=== PATIENT | female | born 1925 | race Caucasian/White ===

== ENCOUNTER 2016-04-20 06:12 | Inpatient (IN) | payer OTHER ==
[2016-04-20] MEDS ORDERED: ALBUTEROL 3 ML DEYVIAL ONE (06:16)
[2016-04-20] MEDS ORDERED: IPRATROPIUM/ALBUTEROL 3 ML DEYVIAL IH ONE (06:17)
[2016-04-20] MEDS ORDERED: NS 500 ML IV ONE (06:17)
--- NOTE | 2016-04-20 06:19 | EDPHY ---
H & P HPI/ROS: HPI CHIEF COMPLAINT: Respiratory distress by EMS on CPAP HISTORY OF PRESENT ILLNESS: This patient very pleasant 89-year-old female significant past medical history for CHF, dyspnea, hypertension, ?interstitial lung disease, coronary artery disease with stents, pulmonary edema, AFib who presents emergency room by EMS after 911 was called for worsening shortness of breath. They found this patient to have a room air saturation of 86%. She was tachypneic in the 40s and audible wheezing and wheezing on exam. They placed her on CPAP and brought her emergently to the ER. Upon arrival here to the emergency room she is tachypneic, she has audible wheezing at bedside, wheezing throughout all lung rouse with diminished breath sounds bilaterally, she appears to be in respiratory distress she has 1 word dyspnea, and she has been placed on BiPAP she did have a room air saturation of 84% here. Daughter at bedside reports that over the last 3 days she has had her increasing progressively worsening cough nonproductive and some wheezing. She also complained of some epigastric burning pain. Her daughter gave her Maalox last night to see if this improved her epigastric discomfort and around 3:00 a.m. she got up to go the bathroom and noticed that she was more short of breath. Of note this patient was admitted back in November 16 and discharged on November 22. This noted on her last H&P she had EF of 25%. Of note this patient is a DNR. Past Medical History: Hypertension, CHF, dyspnea, coronary artery disease, AFib , questionable interstitial lung disease, pulmonary edema Past Surgical History: Left chest pacemaker coronary artery disease with stents Social History: Lives locally, daughter at bedside, denies use of drugs alcohol tobacco products Family History: Noncontributory ROS REVIEW OF SYSTEMS: A comprehensive 10 point review of systems is otherwise negative aside from elements mentioned in the history of present illness. Exam Constitutional severe amount of respiratory distress, one word dyspnea, triage nursing summary reviewed, vital signs reviewed, awake/alert. Eyes normal conjunctivae and sclera, EOMI, PERRLA. HENT normal inspection, atraumatic, moist mucus membranes, no epistaxis, neck supple/ no meningismus, no raccoon eyes. Respiratory decreased breath sounds bilaterally, audible wheezing at bedside , wheezing throughout all lung rouse, respiratory distress, 1 more dyspnea Cardiovascular rate normal, regular rhythm, no murmur, no edema, distal pulses normal. Gastrointestinal soft, non-tender, no rebound, no guarding, normal bowel sounds, no distension, no pulsatile mass. Genitourinary no CVA tenderness. Musculoskeletal no midline vertebral tenderness, full range of motion, no calf swelling, no tenderness of extremities, no meningismus, good pulses, neurovascularly intact. Skin pink, warm, & dry, no rash, skin atraumatic. Neurologic awake, alert and oriented x 3, AAOx3, moves all 4 extremities equally, motor intact, sensory intact, CN II-XII intact, normal cerebellar, normal vision, normal speech. Psychiatric normal mood/affect. Heme/Lymph/Immune no lymphadenopathy. Differential Diagnosis: Includes but is not limited to in a particular order, respiratory distress, COPD exacerbation, pulmonary edema, interstitial lung disease, pneumonia, influenza, heart failure, pulmonary embolism, pneumothorax Medical Decision Making: this patient has been placed on full face BiPAP for respiratory support, we will obtain an ABG in 30 minutes after on BiPAP, patient did receive Solu-Medrol 125 mg by EMS as well as a DuoNeb breathing treatment will place her on a continuous neb treatment at this time. She will have a chest x-ray, EKG, blood work, cardiac marker. I have also ordered an echocardiogram. Patient need to be admitted on full face BiPAP most likely to the ICU. Re-evaluation: EKG interpretation by me on record in [employer] system. Impression time of EKG 6:25 a.m., this is sinus rhythm with a left bundle branch block present. This is similar to her previous EKGs. ED x-ray chest one view: Cardiomegaly present, pulmonary edema present throughout lung rouse mild pleural effusions bilaterally. Critical Care: Total Critical Care Time Spent Managing this Patient: 60 Minutes. This time was spent Exclusively with this patient. This Care was exclusive of procedures. The Organ System/life at risk was respiratory This Patient was in Critical Condition because respiratory distress, due to decompensated heart failure 0659; spoke with Dr. Mendosa with cardiology understands this patient be admitted to the hospitalist service. Will consult inpatient. Source: Patient, EMS - Personal History Tetanus Vaccine Date: < 10 years - Medical/Surgical History Hx Asthma: No Hx Chronic Respiratory Disease: Yes Hx Diabetes: No Hx Cardiac Disease: Yes Hx Renal Disease: No Hx Cirrhosis: No Hx Alcoholism: No Hx HIV/AIDS: No Hx Splenectomy or Spleen Trauma: No Other PMH: Pacemaker, Congestive heart failure, HTN (labile per daughter), CAD, 2 stents: 1 in 2001 and 1 in 2013, [place] (1990), Interstitial lung disease Aphasic episode (2012), Afib, cholycystecotmy, GERD - Social History Smoking Status: Former smoker Constitutional: Initial Vital Signs O2 Sat (%) 99 04/20/16 06:17 O2 Delivery Mode Bi-Pap Allergies/Adverse Reactions: atenolol Allergy (Verified 04/20/16 06:30) ceftriaxone Allergy (Verified 04/20/16 06:30) celecoxib [From Celebrex] Allergy (Verified 04/20/16 06:30) Penicillins Allergy (Verified 04/20/16 06:30) Rash Home Medications: Medication Instructions Recorded Multivitamins [Multivitamin (*)] 1 tab PO Q2D 10/23/14 Amiodarone HCl [Pacerone (*)] 200 mg PO DAILY@18 12/24/14 Magnesium Hydroxide/Al Hydrox 10 ml PO DAILY 12/24/14 [Mag-Al Liquid] Sennosides/Docusate Sodium 1 - 2 tab PO HS PRN 12/24/14 [Senokot-S] Aspirin [Aspirin 81mg (*)] 81 mg PO DAILY #0 tab 12/26/14 Isosorbide Dinitrate [Isosorbide 20 mg PO TIDNITRATE #90 tab 12/26/14 Dinitrate 20 mg (*)] hydrALAZINE [Apresoline 10 mg (*)] 10 mg PO TID #90 tab 12/26/14 ALPRAZolam [Xanax 0.25 MG (*)] 0.375 mg PO HS 07/31/15 Levothyroxine [Synthroid 75 mcg 75 mcg PO DAILY06 07/31/15 (*)] Ascorbic Acid [Vitamin C 500 mg 500 mg PO Q2D 04/20/16 (*)] Calcium Carbonate [Tums 500MG (*)] 1,000 mg PO HS 04/20/16 Cholecalciferol Vit D3 [Vitamin D3 2,000 units PO DAILY 04/20/16 (*)] Clopidogrel Bisulfate [Plavix (*)] 75 mg PO DAILY@08 04/20/16 Furosemide [Lasix 20 MG (*)] 20 mg PO DAILY 04/20/16 Furosemide [Lasix 20 MG (*)] 20 mg PO DAILY PRN 04/20/16 Herbals/Supplements -Info Only 1 ea PO DAILY 04/20/16 Levalbuterol Inhaler [Xopenex Hfa 2 puffs IH DAILY PRN 04/20/16 Inhaler (*)] Loratadine [Claritin 10 mg] 10 mg PO DAILY 04/20/16 Pantoprazole Sodium [Protonix 40mg 40 mg PO DAILY 04/20/16 (*)] Medical Decision Making - Data Points Laboratory Results: Laboratory Results 04/20/16 06:20 04/20/16 06:20 Microbiology Results: MICROBIOLOGY 04/20/16 06:20 Blood Blood Culture - Preliminary 04/20/16 06:20 Blood Blood Culture - Preliminary Medications Given: Discontinued Medications Al Hydroxide/Mg Hydroxide (Maalox Susp) 10 ml PO DAILY [facility] Stop: 10/18/16 08:59 Last Admin: 04/21/16 10:23 Dose: Not Given Albuterol/Ipratropium (Duoneb) 3 ml IH EDNOW ONE Stop: 04/20/16 06:18 Last Admin: 04/20/16 06:49 Dose: 3 ml Furosemide (Lasix Injection) 40 mg IVP EDNOW ONE Stop: 04/20/16 06:44 Last Admin: 04/20/16 07:00 Dose: 40 mg Sodium Chloride (Ns) 500 mls @ 0 mls/hr IV ONCE ONE PRN Reason: As Directed Stop: 04/20/16 06:18 Last Admin: 04/20/16 07:02 Dose: Not Given Isosorbide Dinitrate (Isosorbide Dinitrate) 20 mg PO TIDNITRATE [facility] Stop: 10/17/16 11:59 Last Admin: 04/20/16 11:58 Dose: 20 mg Morphine Sulfate (Morphine) 4 mg IVP EDNOW ONE Stop: 04/20/16 06:30 Last Admin: 04/20/16 06:35 Dose: 4 mg Ondansetron HCl (Zofran) 4 mg IVP EDNOW ONE Stop: 04/20/16 06:30 Last Admin: 04/20/16 06:33 Dose: 4 mg Pantoprazole Sodium (Protonix) 40 mg PO DAILY [facility] Stop: 10/17/16 11:59 Last Admin: 04/20/16 12:30 Dose: Not Given Departure - Departure Disposition: [facility] Inpatient Acute Clinical Impression: Acute decompensated heart failure Condition: Critical
--- NOTE | 2016-04-20 06:27 | CPEKG ---
Heart Rate: 77 RR Interval: 779 P-R Interval: 180 QRSD Interval: 204 QT Interval: 480 QTC Interval: 544 P Ellington: 73 QRS Ellington: -20 T Wave Ellington: 105 EKG Severity - ABNORMAL ECG - EKG Impression: SINUS RHYTHM EKG Impression: LEFT BUNDLE BRANCH BLOCK Electronically Signed By: Kiran Vidal 22-Apr-2016 05:16:56
[2016-04-20] MEDS ORDERED: ONDANSETRON 4 MG/2 ML VIAL IVP ONE (06:29)
[2016-04-20 06:37] LABS: % IMMATURE GRANULYOCYTES 0.4 % (0.0-1.1); ABSOLUTE IMMATURE GRANULOCYTES 0.03 10^3/uL (0.00-0.10); ADD DIFF? NO; ADD MORPH? NO; ADD SCAN? NO; ATYPICAL LYMPHOCYTE FLAG 10 (0-99); FRAGMENT RBC FLAG 0 (0-99); HEMOGLOBIN 12.4 g/dL (12.6-16.3); LEFT SHIFT FLG 0 (0-99); LIPEMIA HEMOLYSIS FLAG 80 (0-99); MEAN CELL HEMOGLOBIN 30.6 pg (27.9-34.1); MEAN CELL HEMOGLOBIN CONCENTR. 32.6 g/dL (32.4-36.7); MEAN CELL VOLUME 93.8 fL (81.5-99.8); MEAN PLATELET VOLUME 10.3 fL (8.7-11.7); PLATELET CLUMPS FLAG 10 (0-99); PLATELET COUNT 234 10^3/uL (150-400); RED BLOOD CELL COUNT 4.05 10^6/uL (4.18-5.33); RED CELL DISTRIBUTION WIDTH 14.6 % (11.5-15.2)
[2016-04-20 06:42] LABS: INR 1.07 (0.83-1.16); PROTIME(PATIENT) 13.8 SEC (12.0-15.0)
[2016-04-20 06:43] LABS: APTT 23.1 SEC (23.0-38.0)
[2016-04-20] MEDS ORDERED: FUROSEMIDE 40 MG/4 ML VIAL IVP ONE (06:43)
[2016-04-20 06:45] LABS: ALANINE AMINOTRANSFERASE 69 IU/L (9-52); ALBUMIN 3.8 g/dL (3.5-5.0); ALKALINE PHOSPHATASE 116 IU/L (38-126); ANION GAP 11 mEq/L (8-16); ASPARTATE AMINOTRANSFERASE 74 IU/L (14-46); BILIRUBIN,TOTAL 0.8 mg/dL (0.1-1.4); BILIRUBIN-CONJUGATED 0.2 mg/dL (0.0-0.5); BILIRUBIN-UNCONJUGATED 0.6 mg/dL (0.0-1.1); CALCIUM 9.5 mg/dL (8.5-10.4); CARBON DIOXIDE 29 mEq/l (22-31); CHLORIDE 99 mEq/L (97-110); CREATININE 0.9 mg/dL (0.6-1.0); GLOMERULAR FILTRATION RATE 59; GLUCOSE 136 mg/dL (70-100); POTASSIUM 4.5 mEq/L (3.5-5.2); SODIUM 139 mEq/L (134-144); TOTAL PROTEIN 6.9 g/dL (6.3-8.2)
[2016-04-20 06:57] LABS: TROPONIN I 0.016 ng/mL (0-0.034)
[2016-04-20] MEDS ORDERED: ONDANSETRON DISINTEGRATING 4 MG TAB PO PRN (06:58)
[2016-04-20] MEDS ORDERED: ACETAMINOPHEN 325 MG TAB PO PRN (06:58)
[2016-04-20] MEDS ORDERED: ONDANSETRON 4 MG/2 ML VIAL IVP PRN (06:58)
--- NOTE | 2016-04-20 08:31 | GHP ---
[f rep st] HISTORY AND PHYSICAL DATE OF ADMISSION: 04/20/2016 CHIEF COMPLAINT: Epigastric pain and chest tightness. HISTORY OF PRESENT ILLNESS: This is an 89-year-old female with a known history of ischemic heart dys function and systolic heart failure who presents with complaints of early onset this morning of epiga stric tightness and what she describes as congestion. The patient is managed very carefully at home by her daughter on medications for her heart disease and gastroesophageal reflux disease. Per the duane carpenter's report, the patient was in her normal state of health, but had been describing a sense of co ngestion over the course of the preceding 72 hours, a sensation of needing to cough or clear secretio ns which she has been unable to do so. This led to increased shortness of breath and some fatigue. The patient additionally has recurrent nearly daily symptoms of reflux for which she takes medication s. When she went to bed the night prior to presentation, she had been complaining of worsening reflu x symptoms and was treated with her typical medications, had relief and went to bed. The patient sle pt from her normal bedtime until about 3 in the morning when she woke up to urinate and described int ensification of both her reflux symptoms and a congested sensation in her chest; therefore, presente d to the emergency department. In the ED, the patient is denying any chest pain. Denies palpitation s. She is currently on BiPAP and is having symptomatic relief of both her reflux symptoms and her co ngestion. Denies any abdominal discomfort beyond the epigastric area. Denies any changes in her bow el habits. Denies dysuria or hematuria. The patient, however, has lower extremity edema or notable edema in her abdomen even when having an exacerbation of her heart failure. Denies any subjective fe vers or chills. Daughter denies any recent cough or productive sputum. PAST MEDICAL HISTORY: 1. Chronic systolic heart failure. 2. Hypertension. 3. Coronary artery disease, status post stenting. 4. Gastroesophageal reflux disease with chronic epigastric pain. 5. History of interstitial lung disease. This diagnosis is questioned by Pulmonary. 6. Paroxysmal atrial fibrillation, status post pacemaker. 7. Hypothyroidism. 8. History of a hip fracture in November of 2014. 9. Polymyalgia rheumatica, not on steroids. 10. Anxiety, on chronic benzodiazepines. SOCIAL HISTORY: Patient lives with her daughter. Nonsmoker and nondrinker. No illicit drugs. ADVANCED DIRECTIVES: The patient is do not resuscitate. FAMILY HISTORY: Both her parents are . REVIEW OF SYSTEMS: A 10-point review of systems is negative with the exception of that reported in nica deluca HPI. PHYSICAL EXAMINATION: VITAL SIGNS: Blood pressure is 157/94, heart rate 83, respiratory rate 22, sa turating 98% on 100% BiPAP, receiving continuous nebulizer treatment. Afebrile at 36.4. GENERAL: Nica de la rosa is an elderly-appearing female sitting up with a BiPAP mask on. HEENT: Notable for dry mucous m embranes. Eye exam is negative for any icterus. CARDIAC: Patient sounds regular. Has a systolic m urmur. PULMONARY: Diminished breath sounds at bilateral bases. Rales are appreciated posteriorly. GASTROINTESTINAL: Positive bowel sounds. ABDOMEN: Soft. Tender to palpation in the epigastrium. No rebound or guarding. MUSCULOSKELETAL: Negative for any lower extremity edema. SKIN: Negative f or any rashes. NEUROLOGIC: She appears alert and oriented x3 with simple questioning through the Bi PAP mask. PSYCHIATRIC: She is cooperative on interview and examination. IMAGING: EKG, which I personally reviewed and interpreted, shows sinus rhythm with a left bundle bra nch block. Chest x-ray, which I personally reviewed and interpreted, shows bilateral increased interstitial jarrod ings. Pacemaker is visualized. Suspect a small effusion on the left. LABORATORY DATA: White count 8.4, hematocrit 38.0 which is baseline, platelets 234, INR 1.07, creati nine 0.9, sodium 139. BNP is 6530 up from 4180 last checked. Troponin 0.016. ASSESSMENT/PLAN: 1. Acute systolic heart failure. Bedside echocardiography is being performed. As I examined the katiana garcia, estimated ejection fraction is lower than 35 last visualized on transthoracic echo. Based on chest imaging and increased oxygen needs, suspect the patient is experiencing acute systolic heart fa ilure. Agree with IV Lasix at this time. Will continue her cardiac medications once reconciled. Izzy chapman is comfortable on BiPAP and I suspect after diuresis we will be able to transition her back to nasa l cannula. Cardiology has been consulted from the emergency department. The patient is do not resus citate so we will focus our treatment on medical management. 2. Acute hypoxic respiratory failure secondary to acute systolic heart failure. Again, we will matthew t with IV Lasix. Continue the patient's cardiac regimen otherwise. 3. Atrial fibrillation, status post pacemaker placement. The patient's rates are currently controll ed. She is sinus on EKG at presentation. Will continue her amiodarone, aspirin and Plavix. 4. Gastroesophageal reflux disease. Patient uses multiple medications. Will continue her PPI and H 2 marialuisa she takes at home. Symptoms certainly compounds her presentation for heart failure intermi ttently if the symptoms are confused. 5. Hypertension. Continue her multi-drug regimen. Blood pressures are appropriately controlled at presentation. Prophylaxis with Lovenox. 6. Anxiety. Will continue the patient's three times daily p.r.n. Xanax. DIET: Cardiac when she is transitioned off the BiPAP. DISPOSITION: I expect greater than 2 midnights as the patient is nearly 89 and presenting with acute hypoxic respiratory failure and acute systolic heart failure. I have discussed the case with the ergency room physician. Patient is responding well to BiPAP. She is stable for transition to the [facility]. /[id number]/MODL
--- NOTE | 2016-04-20 08:44 | DX ---
Portable AP chest. April 20, 2016At 6:33 AM History: Prior history of CHF. Dyspnea. COMPARISON STUDY: November 18, 2015. Findings: Diffuse interstitial thickening is new from prior study compatible with acute interstitial edema and acute congestive heart failure. Cardiac silhouette remains markedly enlarged. Left subclavian transvenous pacemaker is unchanged. Advanced degenerative arthropathy identified in both shoulders. Impression: Acute congestive heart failure.
[2016-04-20] MEDS: ASPIRIN 81 MG CHEWABLE TAB PO SCH (11:31)
[2016-04-20] MEDS: ENOXAPARIN 40 MG/0.4 ML SYR SC SCH (11:32)
[2016-04-20] MEDS: hydrALAZINE 10 MG TAB PO SCH ×3 (11:32→23:02)
[2016-04-20] MEDS: CHOLECALCIFEROL VIT D3 1,000 UNITS TAB PO SCH (11:32)
[2016-04-20] MEDS: CLOPIDOGREL BISULFATE 75 MG TAB PO SCH (11:32)
[2016-04-20] MEDS ORDERED: LEVALBUTEROL INHALER 200 PUFFS/15 GM MDI IH PRN (11:45)
[2016-04-20] MEDS ORDERED: NON-FORMULARY NEW DRUG (Loratadine [Claritin 10 Mg] 10 MG) PO SCH (11:45)
[2016-04-20] MEDS: MULTIVITAMINS 1 EACH TAB PO SCH (11:58)
[2016-04-20] MEDS: LEVOTHYROXINE 75 MCG TAB PO SCH (11:58)
[2016-04-20] MEDS ORDERED: ISOSORBIDE DINITRATE 20 MG TAB PO SCH (12:00)
[2016-04-20] MEDS ORDERED: PANTOPRAZOLE SODIUM 40 MG TAB PO SCH (12:00)
[2016-04-20] MEDS: CETIRIZINE 10 MG TAB PO SCH (12:00)
[2016-04-20] MEDS: FUROSEMIDE 40 MG/4 ML VIAL IVP SCH (14:39)
[2016-04-20] MEDS: PANTOPRAZOLE SODIUM 40 MG TAB PO SCH (16:18)
[2016-04-20] MEDS: AMIODARONE HCL 200 MG TAB PO SCH (17:25)
[2016-04-20] MEDS: ISOSORBIDE DINITRATE 20 MG TAB PO SCH ×2 (17:25→23:03)
[2016-04-20] MEDS ORDERED: CALCIUM CARBONATE 500 MG CHEWABLE TAB PO PRN (18:04)
[2016-04-20] MEDS: CALCIUM CARBONATE 500 MG CHEWABLE TAB PO PRN (18:07)
--- NOTE | 2016-04-20 19:22 | GCON ---
[f rep st] CONSULTATION CARDIOLOGY CONSULTATION DATE OF CONSULTATION: 04/20/2016 CHIEF COMPLAINT: Epigastric tightness and pressure and shortness of breath. HISTORY OF PRESENT ILLNESS: The patient is an 89-year-old female patient of Dr. Wilfredo Montemayor and Dr. Lopez with a known history of ischemic cardiomyopathy, ejection fraction last in October y ear of 35%, who presents in the healthcare advisory services manager hours with complaint of shortness of breath. It began, as it usually does, with epigastric fullness and tightness. This did not respond to the usual thera pies which include treatment for reflux with Maalox and Mylanta. The pressure and epigastric discomf ort continued to worsen. The patient was unable to get a deep breath and finally this morning an amb ulance was called, BiPAP was placed to help the patient with respiration, and the patient was admitte d to the hospital. At the time of my evaluation, the patient has been diuresed successfully and is n o longer on BiPAP. She seems to be comfortable sitting upright in the chair. I was asked to see the patient in consultation because of her admission and known history of ischemic cardiomyopathy. PAST MEDICAL HISTORY: 1. Yqshe-ow-jkjeapu systolic heart failure. 2. Hypertension. 3. Coronary disease status post stenting. 4. GE reflux with epigastric pain. 5. History of interstitial lung disease. 6. History of paroxysmal atrial fibrillation status post pacer. 7. History of hip fracture. PHYSICAL EXAMINATION: VITAL SIGNS: At the time of my evaluation, the patient's vital signs reveal b lood pressure 133/57, mean arterial pressure 82, heart rate 60 and regular, respirations are 16 and n on-labored, oxygen saturation 94% on nasal cannula. NECK: Reveals JVD. HEART: Reveals a normal S1 and S2 with a loud 3/6 to 4/6 systolic murmur consistent with mitral regurgitation with a diffuse an d laterally displaced PMI and a palpable thrill consistent with severe mitral regurgitation. LUNGS: Reveal bibasilar crackles. ABDOMEN: Benign. EXTREMITIES: Warm, dry, perfuse without significant peripheral edema. LABORATORY: Her laboratory studies reveal: 1. A white count of 8.43, an H and H of 12.4 and 38.0, a platelet count of 234. 2. BUN and creatinine are 13 and 0.9, glucose 136. AST and ALT 74 and 69, with an N-terminal proBNP of 6530. 3. The serology is negative for influenza type A and B, and is negative for flu. 4. The patient's EKG reveals sinus rhythm with left bundle branch block which is known to be chronic and diffuse ST-T abnormalities that are most likely secondary to left bundle branch block. IMPRESSION AND PLAN: Iaspi-kz-jtxxdgm systolic heart failure in a patient without recent history of dietary indiscretion. I am not sure what was the precipitating factor, but certainly the patient has had epigastric chest pressure which predates her systolic dysfunction. It may be reasonable to chec k the patient's device to see if the patient had a bout of atrial fibrillation that was causative in this issue. Given the fact that she has left bundle branch block, if atrial fibrillation with rapid ventricular response was causal in this sudden bout of congestive heart failure, it may be reasonable to consider an A-V brittany ablation to reduce the risk of a tachycardic induced superimposed myopathy in her particular case. This patient has been seen in the past by Dr. Montemayor and John and it may be prudent to get them involved in her care tomorrow. Thank you for the consultation. Will follow with you during her hospitalization. /[id number]/MODL
[2016-04-20] MEDS: ALPRAZolam 0.25 MG TAB PO SCH (20:59)
[2016-04-21] MEDS: LEVOTHYROXINE 75 MCG TAB PO SCH (05:32)
[2016-04-21 07:03] LABS: % IMMATURE GRANULYOCYTES 0.6 % (0.0-1.1); ABSOLUTE IMMATURE GRANULOCYTES 0.08 10^3/uL (0.00-0.10); ADD DIFF? NO; ADD MORPH? NO; ADD SCAN? NO; ATYPICAL LYMPHOCYTE FLAG 0 (0-99); FRAGMENT RBC FLAG 0 (0-99); HEMATOCRIT 31.2 % (38.0-47.0); HEMOGLOBIN 10.4 g/dL (12.6-16.3); LEFT SHIFT FLG 0 (0-99); LIPEMIA HEMOLYSIS FLAG 80 (0-99); MEAN CELL HEMOGLOBIN CONCENTR. 33.3 g/dL (32.4-36.7); MEAN CELL VOLUME 92.9 fL (81.5-99.8); MEAN PLATELET VOLUME 10.3 fL (8.7-11.7); PLATELET CLUMPS FLAG 10 (0-99); PLATELET COUNT 202 10^3/uL (150-400); RED BLOOD CELL COUNT 3.36 10^6/uL (4.18-5.33); RED CELL DISTRIBUTION WIDTH 14.5 % (11.5-15.2)
[2016-04-21 07:27] LABS: ANION GAP 9 mEq/L (8-16); CARBON DIOXIDE 30 mEq/l (22-31); CHLORIDE 98 mEq/L (97-110); CREATININE 0.8 mg/dL (0.6-1.0); GLOMERULAR FILTRATION RATE > 60; GLUCOSE 101 mg/dL (70-100); POTASSIUM 4.5 mEq/L (3.5-5.2); SODIUM 137 mEq/L (134-144)
[2016-04-21] MEDS ORDERED: CLOPIDOGREL BISULFATE 75 MG TAB PO SCH (08:00)
--- NOTE | 2016-04-21 08:13 | HOSPPROG ---
Hospitalist Progress Note Assessment/Plan: #Acutely decompensated systolic HF -unclear etiology as compliant with meds/diet -pacer to be interrogated today and no tachyarrhythmia contributing -cont IV Lasix #CAD: Plavix, ASA, statin #Paroxsymal atrial fibrillation -no arrhythmia on interrogation -cont amiodarone, not anticoagulation candidate #Leukocytosis -unclear cause. Afebrile. Influenza negative. -negative UA #Acute hypoxemic resp failure -due to CHF. Initially required BiPap; now on 3L #MR -stable #Benign HTN -cont home meds #Hypothyroidism -LT4 #Diet: cardiac #DVT ppx: Lovenox Subjective: feeling less SOB, worked with PT Objective: Vital Signs Temp Pulse Resp BP Pulse Ox 36.6 C 66 17 114/61 94 04/21/16 05:56 04/21/16 05:56 04/21/16 05:56 04/21/16 05:56 04/21/16 05:56 Laboratory Results 04/21/16 06:43 04/21/16 06:43 04/20/16 04/21/16 04/22/16 05:59 05:59 05:59 Intake Total 100 Output Total 1100 Balance -1000 PT 13.8 SEC (12.0-15.0) 04/20/16 06:20 INR 1.07 (0.83-1.16) 04/20/16 06:20 - Physical Exam Constitutional: no apparent distress Eyes: PERRL Ears, Nose, Mouth, Throat: moist mucous membranes Cardiovascular: regular rate and rhythym, systolic murmur, edema (LE edema +!) Respiratory: inspiratory crackles Gastrointestinal: normoactive bowel sounds, soft, non-tender abdomen Genitourinary: no bladder fullness Skin: warm Musculoskeletal: full muscle strength Neurologic: AAOx3 Psychiatric: interacting appropriately ICD10 Worksheet Patient Problems: Problems Problem Status Diagnosed Acute decompensated heart failure Acute Acute delirium Acute Atrial fibrillation Acute Chronic Disease Mgmt/Transitional Care Acute Coronary artery disease Acute S/P coronary artery stent placement Acute Acute exacerbation of CHF (congestive heart failure) Acute Acute exacerbation of congestive heart failure Acute
[2016-04-21] MEDS ORDERED: MAGNESIUM HYDROXIDE PO SCH (09:00)
[2016-04-21] MEDS ORDERED: MAG HYDROX/AL HYDROX/SIMETH 30 ML UDCUP PO SCH (09:00)
[2016-04-21] MEDS ORDERED: ALUMINUM HYDROXIDE PO SCH (09:00)
[2016-04-21] MEDS ORDERED: CHOLECALCIFEROL VIT D3 1,000 UNITS TAB PO SCH (09:00)
[2016-04-21] MEDS: CLOPIDOGREL BISULFATE 75 MG TAB PO SCH (09:15)
[2016-04-21] MEDS: hydrALAZINE 10 MG TAB PO SCH ×3 (09:15→21:53)
[2016-04-21] MEDS: ISOSORBIDE DINITRATE 20 MG TAB PO SCH ×3 (09:15→21:47)
[2016-04-21] MEDS: ASPIRIN 81 MG CHEWABLE TAB PO SCH (09:16)
[2016-04-21] MEDS: CHOLECALCIFEROL VIT D3 1,000 UNITS TAB PO SCH (09:17)
[2016-04-21] MEDS: CETIRIZINE 10 MG TAB PO SCH (09:17)
[2016-04-21] MEDS: ENOXAPARIN 40 MG/0.4 ML SYR SC SCH (09:19)
[2016-04-21] MEDS: FUROSEMIDE 40 MG/4 ML VIAL IVP SCH ×2 (09:21→15:34)
[2016-04-21 12:34] LABS: COLOR YELLOW; LEUKOCYTE ESTERASE,URINE NEGATIVE (NEGATIVE); NITRITE,URINE NEGATIVE (NEGATIVE)
--- NOTE | 2016-04-21 17:23 | SOAPPROG ---
[facility] Progress Note Assessment/Plan: Assessment: 1. Acute systolic CHF - Pt was admitted on 04/20/16 with an acute systolic CHF exacerbation. The precipitating factor is not entirely clear at this time. LVEF = 20 to 25%. Symptoms improved with diuresis. O > I by 1000ml. --> No significant arrhythmias on pacemaker check. --> Consider stress test to exclude ischemia --> Continue isosorbide and hydralazine --> Continue gentle diuresis with lasix 40 mg bid --> No BB secondary to previous ADR 2. CAD - Pt has known CAD and is s/p PCI of her LAD and RCA. She denies symptoms of angina. Troponin wnl. EKG non-diagnostic given known LBBB. --> Continue asa and plavix --> No BB secondary to ADR --> Consider stress test as noted above 3. PAF - Pt has a history of PAF. She is managed with a rhythm control strategy. She is not felt to be an anticoagulation candidate. --> Continue amiodarone for rhythm control 4. HTN - Pt elevated no arrival. BP wnl on home meds. Will not advance therapy. 5. 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 Echocardigram demonstrates stable moderate to severe MR. Pt is not a good candidate for surgery. Subjective: Dyspnea improved No PND No angina No syncope or pre-syncope. Objective: Vital Signs Temp Pulse Resp BP Pulse Ox 36.6 C 85 18 112/52 L 98 04/21/16 12:33 04/21/16 15:40 04/21/16 15:40 04/21/16 15:40 04/21/16 15:40 Laboratory Results 04/21/16 06:43 04/21/16 06:43 04/20/16 04/21/16 04/22/16 05:59 05:59 05:59 Intake Total 100 Output Total 1100 Balance -1000 PT 13.8 SEC (12.0-15.0) 04/20/16 06:20 INR 1.07 (0.83-1.16) 04/20/16 06:20 Physical Exam - Physical Exam General Appearance: alert, no apparent distress Respiratory: crackles Cardiac/Chest: regular rate, rhythm, systolic murmur Extremities: pedal edema Neuro/Psych: alert ICD10 Worksheet Patient Problems: Problems Problem Status Diagnosed Acute decompensated heart failure Acute Acute delirium Acute Atrial fibrillation Acute Chronic Disease Mgmt/Transitional Care Acute Coronary artery disease Acute S/P coronary artery stent placement Acute Acute exacerbation of CHF (congestive heart failure) Acute Acute exacerbation of congestive heart failure Acute
[2016-04-21] MEDS: PANTOPRAZOLE SODIUM 40 MG TAB PO SCH (17:54)
[2016-04-21] MEDS: AMIODARONE HCL 200 MG TAB PO SCH (17:54)
[2016-04-21] MEDS: ALPRAZolam 0.25 MG TAB PO SCH (21:46)
[2016-04-21] MEDS: MAG HYDROX/AL HYDROX/SIMETH 30 ML UDCUP PO SCH (21:54)
[2016-04-22 06:16] LABS: HEMATOCRIT 31.6 % (38.0-47.0); HEMOGLOBIN 10.3 g/dL (12.6-16.3); MEAN CELL HEMOGLOBIN 30.2 pg (27.9-34.1); MEAN CELL HEMOGLOBIN CONCENTR. 32.6 g/dL (32.4-36.7); MEAN CELL VOLUME 92.7 fL (81.5-99.8); RED BLOOD CELL COUNT 3.41 10^6/uL (4.18-5.33); RED CELL DISTRIBUTION WIDTH 14.6 % (11.5-15.2)
[2016-04-22 07:30] LABS: ANION GAP 4 mEq/L (8-16); CALCIUM 8.8 mg/dL (8.5-10.4); CARBON DIOXIDE 36 mEq/l (22-31); CHLORIDE 97 mEq/L (97-110); CREATININE 0.9 mg/dL (0.6-1.0); GLOMERULAR FILTRATION RATE 59; GLUCOSE 78 mg/dL (70-100); POTASSIUM 4.3 mEq/L (3.5-5.2); SODIUM 137 mEq/L (134-144)
[2016-04-22] MEDS: LEVOTHYROXINE 75 MCG TAB PO SCH (07:30)
[2016-04-22] MEDS: ASPIRIN 81 MG CHEWABLE TAB PO SCH (08:59)
[2016-04-22] MEDS: ENOXAPARIN 40 MG/0.4 ML SYR SC SCH (09:00)
[2016-04-22] MEDS: CLOPIDOGREL BISULFATE 75 MG TAB PO SCH (09:00)
[2016-04-22] MEDS ORDERED: ASCORBIC ACID 500 MG TAB PO SCH (09:00)
[2016-04-22] MEDS: ISOSORBIDE DINITRATE 20 MG TAB PO SCH ×3 (09:00→21:32)
[2016-04-22] MEDS: FUROSEMIDE 40 MG/4 ML VIAL IVP SCH (09:00)
[2016-04-22] MEDS: hydrALAZINE 10 MG TAB PO SCH ×3 (09:00→21:31)
[2016-04-22] MEDS: CHOLECALCIFEROL VIT D3 1,000 UNITS TAB PO SCH (09:00)
[2016-04-22] MEDS: CETIRIZINE 10 MG TAB PO SCH (10:02)
[2016-04-22] MEDS: guaiFENesin 200 MG TAB PO PRN ×2 (12:06→15:20)
[2016-04-22] MEDS: MULTIVITAMINS 1 EACH TAB PO SCH (12:09)
[2016-04-22] MEDS: FUROSEMIDE 40 MG TAB PO SCH (15:19)
--- NOTE | 2016-04-22 16:11 | PDPCPN ---
Palliative Care Progress Note Assessment/Plan: Referring provider: Dr Hurst Reason for consult: Complex medical decision making Symptom control HPI: Deyanira Ortiz is a 89 yo female with PMH ISLD, HTN, CAD, and CHF admitted to the hospital with SOB and chest pressure. This is her 7th admission for CHF related issues in the past 3 years. Previous EF in october 35% now at 25%. Given lasix and required bipap on admission now transitioned to nasal cannula at 4 L. Palliative care consulted for complex medical decision making. Met with daughter Kathi, her , and Deyanira at the bedside today. Daughter reviewed that this episode seems to be the most severe as Deyanira did not respond as quickly as she has in the past to bipap and lasix. They have also seen a slow decline over the past few months and Deyanira has been living with them. While Deyanira prefers to be at home her goals are still for rehospitalization if medically needed. The family is considering all options including hospice care in the future if Deyanira continues to decline and her goals change to comfort care only. They have experience with hospice care and are familiar with the services. Discussed difference between hospice and palliative care. They would like to start with palliative care to continue goals of care conversations. Discussed using roxanol to help with her episodes of dyspnea at home. She currently uses xanax which helps some per daughter. Assessment: Physical: - Pain: occasional "chest pressure" - tylenol PRN - continue GERD medications - consider roxanol 2.5mg PO Q2hr PRN - Dyspnea: - opiates as above can be helpful for subjective dyspnea. - would use PRN for now as episodes of dyspnea are limited Emotional/psychological: Anxiety: uses xanax at home about 0.36mg PO per day Advanced Care Planning: Is patient decisional?: Yes Code Status: DNR/DNI POA: Kathi is MDPOA. Plan: Home with home health care and formerly [facility]. As of now Deyanira' s wishes are for re hospitalization if needed for CHF. 04/22/16 16:13 Subjective: I'm ok Objective: Social History: Lives with daughter here in [place]. Medication list reviewed ROS: General: fatigue, weakness ENT: negative Resp: dyspnea GI: negative : negative MS: chest pressure on occasion Skin: negative Neuro: negative Psych: anxiety Functional assessment: PPS: 50% Functional status: needs some assistance with ambulation Vital Signs Temp Pulse Resp BP Pulse Ox 36.8 C 66 20 132/77 H 88 L 04/22/16 11:47 04/22/16 11:47 04/22/16 11:47 04/22/16 11:47 04/22/16 11:47 Laboratory Results 04/22/16 05:48 04/22/16 05:48 04/21/16 04/22/16 04/23/16 05:59 05:59 05:59 Intake Total 100 1740 120 Output Total 1100 1000 Balance -1000 740 120 PT 13.8 SEC (12.0-15.0) 04/20/16 06:20 INR 1.07 (0.83-1.16) 04/20/16 06:20 Physical Exam - Physical Exam General Appearance: alert, no apparent distress Respiratory: decreased breath sounds, No respiratory distress, No accessory muscle use Skin: normal color, warm/dry Extremities: pedal edema (mild) Neuro/Psych: alert, oriented x 3 ICD10 Worksheet Patient Problems: Problems Problem Status Diagnosed Acute decompensated heart failure Acute Acute delirium Acute Atrial fibrillation Acute Chronic Disease Mgmt/Transitional Care Acute Coronary artery disease Acute Palliative care encounter Acute S/P coronary artery stent placement Acute Acute exacerbation of CHF (congestive heart failure) Acute Acute exacerbation of congestive heart failure Acute - ICD10 Problem Qualifiers (1) Palliative care encounter
--- NOTE | 2016-04-22 16:24 | SOAPPROG ---
[facility] Progress Note Assessment/Plan: Assessment: 1. Acute systolic CHF - Pt was admitted on 04/20/16 with an acute systolic CHF exacerbation. The precipitating factor is not entirely clear at this time. LVEF = 20 to 25%. Symptoms improved with diuresis. --> No significant arrhythmias on pacemaker check. --> Continue isosorbide and hydralazine --> Continue gentle diuresis with lasix 40 mg bid --> Will start low dose coreg. 2. CAD - Pt has known CAD and is s/p PCI of her LAD and RCA. She denies symptoms of angina. Troponin wnl. EKG non-diagnostic given known LBBB. --> Continue asa and plavix --> Will start low dose coreg as previous ADR was hypotension with atenolol. 3. PAF - Pt has a history of PAF. She is managed with a rhythm control strategy. She is not felt to be an anticoagulation candidate. --> Continue amiodarone for rhythm control 4. HTN - Pt elevated no arrival. BP wnl on home meds. Will not advance therapy. 5. 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 Echocardigram demonstrates stable moderate to severe MR. Pt is not a good candidate for surgery. Subjective: No anginal symptoms dyspnea improved + cough No orthopnea or PND. ambulating down [place]. Objective: Vital Signs Temp Pulse Resp BP Pulse Ox 36.8 C 66 20 132/77 H 88 L 04/22/16 11:47 04/22/16 11:47 04/22/16 11:47 04/22/16 11:47 04/22/16 11:47 Laboratory Results 04/22/16 05:48 04/22/16 05:48 04/21/16 04/22/16 04/23/16 05:59 05:59 05:59 Intake Total 100 1740 120 Output Total 1100 1000 Balance -1000 740 120 PT 13.8 SEC (12.0-15.0) 04/20/16 06:20 INR 1.07 (0.83-1.16) 04/20/16 06:20 Physical Exam - Physical Exam General Appearance: alert, no apparent distress Respiratory: other (corse bronchial breath sounds) Cardiac/Chest: regular rate, rhythm, systolic murmur Abdomen: normal bowel sounds, non-tender, soft Skin: normal color Extremities: No pedal edema ICD10 Worksheet Patient Problems: Problems Problem Status Diagnosed Acute decompensated heart failure Acute Acute delirium Acute Atrial fibrillation Acute Chronic Disease Mgmt/Transitional Care Acute Coronary artery disease Acute Palliative care encounter Acute S/P coronary artery stent placement Acute Acute exacerbation of CHF (congestive heart failure) Acute Acute exacerbation of congestive heart failure Acute
[2016-04-22] MEDS ORDERED: guaiFENesin 600 MG TAB.ER PO ONE (17:56)
[2016-04-22] MEDS: PANTOPRAZOLE SODIUM 40 MG TAB PO SCH (17:57)
[2016-04-22] MEDS: CARVEDILOL 3.125 MG TAB PO SCH (17:58)
[2016-04-22] MEDS: AMIODARONE HCL 200 MG TAB PO SCH (17:58)
[2016-04-22] MEDS: CALCIUM CARBONATE 500 MG CHEWABLE TAB PO PRN (18:00)
--- NOTE | 2016-04-22 18:08 | HOSPPROG ---
Hospitalist Progress Note Assessment/Plan: #Acutely decompensated systolic HF -unclear etiology as compliant with meds/diet -pacer interrogated and no tachyarrhythmia contributing -trial PO Lasix 40mg BID to find good home dose -Appreciate Cardiology consultation: added low-dose Coreg #CAD: Plavix, ASA, statin #Paroxsymal atrial fibrillation -no arrhythmia on interrogation -cont amiodarone, not anticoagulation candidate #Leukocytosis -resolved -unclear cause. Afebrile. Influenza negative. -negative UA #Acute hypoxemic resp failure -due to CHF. Initially required BiPap; now on 2-3L #MR -stable #Benign HTN -cont home meds #Hypothyroidism -LT4 #Diet: cardiac #DVT ppx: Lovenox Subjective: cough with some sputum production today Objective: Vital Signs Temp Pulse Resp BP Pulse Ox 36.8 C 66 20 122/62 H 88 L 04/22/16 11:47 04/22/16 11:47 04/22/16 15:40 04/22/16 15:40 04/22/16 11:47 Laboratory Results 04/22/16 05:48 04/22/16 05:48 04/21/16 04/22/16 04/23/16 05:59 05:59 05:59 Intake Total 100 1740 120 Output Total 1100 1000 450 Balance -1000 740 -330 PT 13.8 SEC (12.0-15.0) 04/20/16 06:20 INR 1.07 (0.83-1.16) 04/20/16 06:20 - Physical Exam Constitutional: no apparent distress Eyes: PERRL Ears, Nose, Mouth, Throat: moist mucous membranes Cardiovascular: regular rate and rhythym, edema (trace LE edema) Respiratory: no respiratory distress, other (few expiratory wheezes) Gastrointestinal: normoactive bowel sounds Genitourinary: no bladder fullness Skin: warm Musculoskeletal: full muscle strength Neurologic: AAOx3 Psychiatric: interacting appropriately ICD10 Worksheet Patient Problems: Problems Problem Status Diagnosed Acute decompensated heart failure Acute Acute delirium Acute Atrial fibrillation Acute Chronic Disease Mgmt/Transitional Care Acute Coronary artery disease Acute Palliative care encounter Acute S/P coronary artery stent placement Acute Acute exacerbation of CHF (congestive heart failure) Acute Acute exacerbation of congestive heart failure Acute
[2016-04-22] MEDS: guaiFENesin 600 MG TAB.ER PO SCH (18:30)
[2016-04-22 20:44] VITALS: PULSE 60
[2016-04-22] MEDS: MAG HYDROX/AL HYDROX/SIMETH 30 ML UDCUP PO SCH (21:31)
[2016-04-22] MEDS: ALPRAZolam 0.25 MG TAB PO SCH (21:32)
[2016-04-23] MEDS: LEVOTHYROXINE 75 MCG TAB PO SCH (05:56)
[2016-04-23 07:07] VITALS: RESP 18; TEMP 97.9
[2016-04-23 09:26] LABS: ANION GAP 5 mEq/L (8-16); CALCIUM 8.9 mg/dL (8.5-10.4); CARBON DIOXIDE 35 mEq/l (22-31); CHLORIDE 96 mEq/L (97-110); CREATININE 0.9 mg/dL (0.6-1.0); GLOMERULAR FILTRATION RATE 59; GLUCOSE 82 mg/dL (70-100); POTASSIUM 4.1 mEq/L (3.5-5.2); SODIUM 136 mEq/L (134-144)
[2016-04-23] MEDS: ISOSORBIDE DINITRATE 20 MG TAB PO SCH (09:50)
[2016-04-23] MEDS: ENOXAPARIN 40 MG/0.4 ML SYR SC SCH (09:50)
[2016-04-23] MEDS: CLOPIDOGREL BISULFATE 75 MG TAB PO SCH (09:50)
[2016-04-23] MEDS: MULTIVITAMINS 1 EACH TAB PO SCH (09:51)
[2016-04-23] MEDS: ASPIRIN 81 MG CHEWABLE TAB PO SCH (09:51)
[2016-04-23] MEDS: CARVEDILOL 3.125 MG TAB PO SCH (09:51)
[2016-04-23] MEDS: guaiFENesin 600 MG TAB.ER PO SCH (09:51)
[2016-04-23] MEDS: CHOLECALCIFEROL VIT D3 1,000 UNITS TAB PO SCH ×2 (09:51→09:58)
[2016-04-23] MEDS: FUROSEMIDE 40 MG TAB PO SCH (09:51)
[2016-04-23] MEDS: CETIRIZINE 10 MG TAB PO SCH ×2 (09:52→09:57)
[2016-04-23] MEDS: hydrALAZINE 10 MG TAB PO SCH (09:52)
[2016-04-23 10:29] VITALS: O2SAT 83
[2016-04-23 11:47] VITALS: BP 96/55
--- NOTE | 2016-04-23 11:53 | PDIAF ---
- Diagnosis Code Status: Do Not Resuscitate - Medication Management Discharge Medications: Medications to Continue on Transfer Multivitamins [Multivitamin (*)] 1 tab PO Q2D 10/23/14 [Last Taken 11/16/15] Amiodarone HCl [Pacerone (*)] 200 mg PO DAILY@18 12/24/14 [Last Taken 04/19/16] Magnesium Hydroxide/Al Hydrox [Mag-Al Liquid] 10 ml PO DAILY 12/24/14 [Last Taken 07/30/15] Sennosides/Docusate Sodium [Senokot-S] 1 - 2 tab PO HS PRN 12/24/14 [Last Taken 11/16/15] Aspirin [Aspirin 81mg (*)] 81 mg PO DAILY #0 tab 12/26/14 [Last Taken 11/16/15] Isosorbide Dinitrate [Isosorbide Dinitrate 20 mg (*)] 20 mg PO TIDNITRATE #90 tab 12/26/14 [Last Taken 04/19/16] hydrALAZINE [Apresoline 10 mg (*)] 10 mg PO TID #90 tab 12/26/14 [Last Taken ] ALPRAZolam [Xanax 0.25 MG (*)] 0.375 mg PO HS 07/31/15 [Last Taken 04/19/16] Levothyroxine [Synthroid 75 mcg (*)] 75 mcg PO DAILY06 07/31/15 [Last Taken ] Ascorbic Acid [Vitamin C 500 mg (*)] 500 mg PO Q2D 04/20/16 [Last Taken Unknown] Calcium Carbonate [Tums 500MG (*)] 1,000 mg PO HS 04/20/16 [Last Taken Unknown] Cholecalciferol Vit D3 [Vitamin D3 (*)] 2,000 units PO DAILY 04/20/16 [Last Taken Unknown] Clopidogrel Bisulfate [Plavix (*)] 75 mg PO DAILY@08 04/20/16 [Last Taken ] Herbals/Supplements -Info Only 1 ea PO DAILY 04/20/16 [Last Taken Unknown] Levalbuterol Inhaler [Xopenex Hfa Inhaler (*)] 2 puffs IH DAILY PRN 04/20/16 [ Last Taken 04/18/16] Loratadine [Claritin 10 mg] 10 mg PO DAILY 04/20/16 [Last Taken 04/19/16] Pantoprazole Sodium [Protonix 40mg (*)] 40 mg PO DAILY 04/20/16 [Last Taken Unknown] Carvedilol [Coreg (*)] 3.125 mg PO BIDMEAL #60 tab 04/23/16 [Last Taken Unknown] Furosemide [Lasix 20 MG (*)] 20 mg PO BID #60 tab 04/23/16 [Last Taken Unknown] Oxycodone HCl [Roxicodone] 2.5 mg PO Q4 PRN #30 tablet 04/23/16 [Last Taken Unknown] Discharge Medications: Refer to the Discharge Home Medication list for PRN reason. - Orders Services needed: Home Care, Registered Nurse, Physical Therapy Home Care Face to Face: I certify that this patient was under my care and that I had the required [id number] encounter meeting the encounter requirements on the discharge day. My findings support the fact that the patient is homebound as defined in CMS Chapter 7 Medicare Benefits Manual 30.1.1, The condition of the patient is such that there exists a normal inability to leave home and consequently, leaving home would require a considerable and taxing effort. Diet Texture: Regular Texture Diet - Follow Up Care Current Providers and Referrals: Carol Ann Chavis MD [Primary Care Provider] - As per Instructions
--- NOTE | 2016-04-23 18:53 | GDS ---
[f rep st] DISCHARGE SUMMARY DISCHARGE DIAGNOSES: 1. Acutely decompensated systolic heart failure. 2. Coronary artery disease. 3. Paroxysmal atrial fibrillation. 4. Leukocytosis. 5. Acute hypoxemic respiratory failure. 6. Mitral regurgitation. 7. Benign hypertension. 8. Hypothyroidism. CONSULTATIONS: 1. Cardiology. 2. Palliative Care. HPI: Patient is an 89-year-old female with known ischemic heart disease and systolic heart failure, who presented with complaints of epigastric tightness and what she describes as congestion. Per stormy kay, patient was in her normal state of health, but had been having the sensation of congestion over the course of 72 hours prior to presentation. This led to shortness of breath and some fatigue. She a lso complained of chronic reflux symptoms, for which she takes medications. The sensation of congesti on intensified; thus, patient presented to the emergency room. She denied overt chest pain. She was i nitiated on BiPAP at admission. Patient has been compliant with her medication. Her daughter is her c aregiver. HOSPITAL COURSE BY PROBLEM: 1. Acutely decompensated systolic heart failure: Unclear etiology as the patient is compliant with m eds and diet per daughter. Patient was interrogated. No tachyarrhythmia was noted. Patient was diures ed well with IV Lasix. Will change Lasix to 20 mg b.i.d. Cardiology did consult and also added low-do se Coreg. Patient has had multiple hospitalizations for this feeling of breathlessness or congestion. At this point, she is not interested in further cardiac evaluation. Goal is medical management and t o keep patient comfortable and out of the hospital. Palliative Care visited with patient here and faby l be arranged at home. Hopefully, additional services and support will prevent patient from re-hospit alizations. I also provided low-dose Roxanol for dyspnea. 2. CAD: Continue Plavix, aspirin, and statin. 3. Paroxysmal atrial fibrillation: No arrhythmia on interrogation. Continue amiodarone, not an antic oagulation candidate. 4. Leukocytosis: Mildly elevated at admission. Denied infectious symptoms. She was afebrile. Influen za and UA were negative. 5. Acute hypoxemic respiratory failure: This was secondary to CHF exacerbation. She initially requir ed BiPAP, but now on 2 L. She will be discharged home on this. 6. Mitral regurgitation: Medication plan as stated above. 7. Benign hypertension: Continue home medications. 8. Hypothyroidism: Levothyroxine. 9. Goals: Primary medical team and Cardiology had multiple conversations with patient and family. We all agree that best strategy is for medical management and to ensure patient's comfort, as well as p revent hospitalizations. Again, patient should visit with her Cardiology PCP more frequently to preve nt subsequent hospitalizations. Palliative Care will be additional support as an outpatient. DISPOSITION: Patient is stable for discharge. MEDICATIONS: 1. Coreg 3.125 b.i.d. 2. Lasix 20 mg b.i.d. FOLLOWUP: 1. Dr. Hernández and then Dr. Montemayor with Cardiology. 2. BMP prior to that appointment. 3. Palliative Care at home. Time spent on discharge 60 minutes, of which greater than 50% was spent on counseling patient on medi cations, discharge, and followup plan. /[id number]/MODL
--- NOTE | 2016-05-05 10:46 | ECHO ---
[id number] + + [address] : : [place] [address] : : [phone] + + Adult Echocardiographic Report + -----+ :Name: SUZI CRUZshivanimis Date: 04/20/2016 07:15 AM : : Hospital Admission Number: [id number] Locatio n: ER: :: 1925 Gender: Female Height: 64 in : :Age: 89 yrs Race: WH Weight: 130 lb : :Reason For Study: Eval LV Fx : : BSA: 1.6 meters 2 : :History: Acute SOB, Bi-PAP : + -----+ MMode/2D Measurements & Calculations IVSd: 1.1 cm LVIDd: 6.1 cm FS: 12.2 % MV Diam: 3.1 cm LVPWd: 1.2 cm LVIDs: 5.3 cm EDV(Teich): 184.8 ml ESV(Teich): 136.9 ml EF(Teich): 25.9 % Ao root diam: LVOT diam: 1.9 cmLVLd ap4: 7.7 cm SV(MOD-sp4): 2.9 cm LVOT area: EDV(MOD-sp4): 15.0 ml ACS: 2.2 cm 2.8 cm2 112.0 ml LVLs ap4: 7.1 cm ESV(MOD-sp4): 97.0 ml EF(MOD-sp4): 13.4 % Normal Measurement Values: + + :LVIDd (3.5-5.7cm) IVSd (0.6-1.1cm) LVPWd (0.6-1.1cm) Aortic Root (2.0-3.7cm)Left Atrium (1.5-4.0cm): :LV Vol(d) (76-115ml) LV Vol(s) (29-48ml) Ejec Fraction (50-65%)PV Dank (0.6- 1.2m/s) TV Dank (0.4-1.0m/s) : :MV E Dank (0.8-1.0m/s)MV A Dank (0.3-1.0m/s)LVOT Dank (0.7-1.2m/s) Asc Ao Dank ( 0.9-1.8m/s) : + + Doppler Measurements & Calculations MV V2 max: Ao V2 max: LV V1 max: MR max dank: 113.0 cm/sec 171.5 cm/sec 94.7 cm/sec 602.3 cm/sec MV max P.1 mmHg Ao max PG: LV V1 max PG: MR max PG: MV V2 mean: 11.8 mmHg 3.6 mmHg 145.4 mmHg 65.8 cm/sec Ao mean PG: LV V1 mean PG: MV mean P.0 mmHg5.0 mmHg 1.0 mmHg MV V2 VTI: 32.3 cm Ao V2 mean: LV V1 mean: MV area (1 diam): 104.0 cm/sec 53.9 cm/sec 7.5 cm2 Ao V2 VTI: 29.9 cm LV V1 VTI: KRISTINA(I,D): 2.0 cm2 20.7 cm MVA(VTI): 1.8 cm2 MV Flow area(1diam):KRISTINA(V,D): 1.6 cm2 7.5 cm2 MR(RF 1 diam): SV(MV 1 diam): PA V2 max: PI end-d dank: 23.4 % 243.8 ml 111.0 cm/sec 138.0 cm/sec SI(MV 1 diam): PA max P.7 ml/m2 4.9 mmHg SV(LVOT): 58.7 ml TR max dank: RF(MV,Ao)(1 diam): 276.0 cm/sec 0.19 TR max P.5 mmHgRF(MV,LVOT)(1diam): RAP systole: 0.76 5.0 mmHg RVSP(TR): 35.5 mmHg Left Ventricle The left ventricle is normal in size. There is mild concentric left ventricular hypertrophy. Ejection Fraction = 20-25%. There is moderate to severe global hypokinesis with dysschrony of the septum and the inferior wall appears akinetic. Right Ventricle There is a pacemaker lead in the right ventricle. The right ventricle is normal size. Atria The left atrium is severely dilated. The right atrium is moderate to severely dilated. Mitral Valve The mitral valve leaflets appear thickened, but open well. There is no mitral valve stenosis. There is moderate to severe mitral regurgitation. Tricuspid Valve There is mild tricuspid regurgitation. Right ventricular systolic pressure is normal. Aortic Valve There is moderate aortic valve calcification. There is no aortic stenosis. Trace aortic regurgitation. Pulmonic Valve trace to mild pulmonic valvular regurgitation. Great Vessels The aortic root is normal size. Pericardium/Pleural There is no pericardial effusion. There is a fat pad seen. There is a large pleural effusion. Conclusion A complete two-dimensional transthoracic echocardiogram was performed (2D, M-mode, Doppler and color flow Doppler). Compared to prior study, changes are noted. There is mild concentric left ventricular hypertrophy. Ejection Fraction = 20-25%. There is moderate to severe global hypokinesis with dysschrony of the septum and the inferior wall appears akinetic. There is a pacemaker lead in the right ventricle. The left atrium is severely dilated. The right atrium is moderate to severely dilated. The mitral valve leaflets appear thickened, but open well. There is moderate to severe mitral regurgitation. The right ventricle is normal size. There is mild tricuspid regurgitation. Right ventricular systolic pressure is normal. There is moderate aortic valve calcification. Trace aortic regurgitation. trace to mild pulmonic valvular regurgitation. There is no pericardial effusion. There is a fat pad seen. There is a large pleural effusion. Compared to prior study the ejection fraction has declined further. These changes are consistent with end stage cardiomyopathy. Final Reading Physician: Bear Figueroa signed on 05/05/2016 10:45 AM Ordering Physician: Irma Hurst Performed By: Oneil Gallegos, CS
== END 2016-04-23 13:02 | disposition home health service (06) | DRG 291 ==
LOC: EDUNIT# → F2W 08:49
PROVIDERS: ADMIT Hospitalist; ATTEND Internal Medicine
PROC: 5A09357 Assistance with Respiratory Ventilation, Less than 24 Consecutive Hours, Continuous Positive Airway Pressure (ICD-10-PCS; principal; 2016-04-20)
DX: I50.23 Acute on chronic systolic (congestive) heart failure (principal); J96.01 Acute respiratory failure with hypoxia; J84.9 Interstitial pulmonary disease, unspecified; I25.5 Ischemic cardiomyopathy; I10 Essential (primary) hypertension; I25.10 Atherosclerotic heart disease of native coronary artery without angina pectoris; M35.3 Polymyalgia rheumatica; I48.0 Paroxysmal atrial fibrillation; I34.0 Nonrheumatic mitral (valve) insufficiency; K21.9 Gastro-esophageal reflux disease without esophagitis; E03.9 Hypothyroidism, unspecified; F41.9 Anxiety disorder, unspecified; D72.829 Elevated white blood cell count, unspecified; Z95.5 Presence of coronary angioplasty implant and graft; Z66 Do not resuscitate; Z95.0 Presence of cardiac pacemaker; Z79.02 Long term (current) use of antithrombotics/antiplatelets; Z79.82 Long term (current) use of aspirin
CPT/HCPCS: 96374; 97116-GP; 97161-GP; 97165-GO; 97530-GO; 97535-GO; G8978-GP-CJ; G8979-GP-CI; G8987-GO-CI; G8987-GO-CJ; G8988-GO-CI; G8989-GO-CI; J1650; J2405

== ENCOUNTER 2016-10-13 17:35 | Emergency (ER) | payer OTHER ==
[2016-10-13 17:49] VITALS: PULSE 60
--- NOTE | 2016-10-13 17:54 | EDPHY ---
H & P Stated Complaint: Pt fell at home this morning. HPI/ROS: HPI CHIEF COMPLAINT: Right hip pain status post mechanical trip and fall HISTORY OF PRESENT ILLNESS: This patient 89-year-old female she presents emergency room by EMS after she had a mechanical trip and fall. She was in her kitchen. She pivoted on her right leg and then lost her balance and fell on her right hip. She now has right lateral hip pain. She tells me that she does not have pain with range of motion. However she tells me when she goes to stand and bear weight and walk she has right hip pain. She denies any other area of injury. She denies syncope. Denies LOC. Denies head strike. Denies chest pain or shortness of breath. Past Medical History: Coronary artery disease with stents Past Surgical History: cardiac stents, right hip surgery Social History: Denies drugs alcohol tobacco products Family History: Noncontributory ROS REVIEW OF SYSTEMS: A comprehensive 10 point review of systems is otherwise negative aside from elements mentioned in the history of present illness. Exam Constitutional appears well nontoxic triage nursing summary reviewed, vital signs reviewed, awake/alert. Eyes normal conjunctivae and sclera, EOMI, PERRLA. HENT normal inspection, atraumatic, moist mucus membranes, no epistaxis, neck supple/ no meningismus, no raccoon eyes. Respiratory clear to auscultation bilaterally, normal breath sounds, no respiratory distress, no wheezing. Cardiovascular rate normal, regular rhythm, no murmur, no edema, distal pulses normal. Gastrointestinal soft, non-tender, no rebound, no guarding, normal bowel sounds, no distension, no pulsatile mass. Genitourinary no CVA tenderness. Musculoskeletal right leg: Neurovascularly intact. Good cap refill, good distal pulses. Full range of motion of the right leg specifically at the right hip. Nontender palpation no midline vertebral tenderness, full range of motion , no calf swelling, no tenderness of extremities, no meningismus, good pulses, neurovascularly intact. Skin pink, warm, & dry, no rash, skin atraumatic. Neurologic awake, alert and oriented x 3, AAOx3, moves all 4 extremities equally, motor intact, sensory intact, CN II-XII intact, normal cerebellar, normal vision, normal speech. Psychiatric normal mood/affect. Heme/Lymph/Immune no lymphadenopathy. Differential Diagnosis: Includes but is not limited to in a particular order hip contusion, soft tissue injury, bony contusion, fracture, fracture with prosthesis Medical Decision Making: Plan for this patient x-ray right hip. Re-evaluation: 1999: ED x-ray right hip: Negative for acute fracture. Image interpreted by myself. 1999: Patient's x-ray do not visualize a fracture. Hardware appears appropriate. Will try to ambulate her to see if she can bear weight and walk. 2022: This patient was able to ambulate without difficulty with her walker. She feels better. Her x-ray has been reviewed shows no fracture. I will allow her to go home. She understands she develops worsening right hip pain or unable to walk she should return emergency room. Source: Patient - Personal History Tetanus Vaccine Date: < 10 years - Medical/Surgical History Hx Asthma: No Hx Chronic Respiratory Disease: Yes Hx Diabetes: No Hx Cardiac Disease: Yes Hx Renal Disease: No Hx Cirrhosis: No Hx Alcoholism: No Hx HIV/AIDS: No Hx Splenectomy or Spleen Trauma: No Other PMH: Pacemaker, Congestive heart failure, HTN (labile per daughter), CAD, 2 stents: 1 in 2001 and 1 in 2013, [place] (1990), Interstitial lung disease Aphasic episode (2012), Afib, cholycystecotmy, GERD - Social History Smoking Status: Former smoker Constitutional: Initial Vital Signs Temperature (C) 36.6 C 10/13/16 17:46 Heart Rate 60 10/13/16 17:46 Respiratory Rate 18 10/13/16 17:46 Blood Pressure 113/64 10/13/16 17:46 O2 Sat (%) 95 10/13/16 17:46 O2 Delivery Mode Room Air Allergies/Adverse Reactions: atenolol Allergy (Verified 04/20/16 06:30) ceftriaxone Allergy (Verified 04/20/16 06:30) celecoxib [From Celebrex] Allergy (Verified 04/20/16 06:30) Penicillins Allergy (Verified 04/20/16 06:30) Rash Home Medications: Medication Instructions Recorded Multivitamins [Multivitamin (*)] 1 tab PO Q2D 10/23/14 Amiodarone HCl [Pacerone (*)] 200 mg PO DAILY@18 12/24/14 Magnesium, Aluminum Hydroxide 10 ml PO DAILY 12/24/14 [Mag-Al Liquid] Sennosides/Docusate Sodium 1 - 2 tab PO HS PRN 12/24/14 [Senokot-S] Aspirin [Aspirin 81mg (*)] 81 mg PO DAILY #0 tab 12/26/14 Isosorbide Dinitrate [Isosorbide 20 mg PO TIDNITRATE #90 tab 12/26/14 Dinitrate 20 mg (*)] hydrALAZINE [Apresoline 10 mg (*)] 10 mg PO TID #90 tab 12/26/14 ALPRAZolam [Xanax 0.25 MG (*)] 0.375 mg PO HS 07/31/15 Levothyroxine [Synthroid 75 mcg 75 mcg PO DAILY06 07/31/15 (*)] Ascorbic Acid [Vitamin C 500 mg 500 mg PO Q2D 04/20/16 (*)] Calcium Carbonate [Tums 500MG (*)] 1,000 mg PO HS 04/20/16 Cholecalciferol Vit D3 [Vitamin D3 2,000 units PO DAILY 04/20/16 (*)] Clopidogrel Bisulfate [Plavix (*)] 75 mg PO DAILY@08 04/20/16 Herbals/Supplements -Info Only 1 ea PO DAILY 04/20/16 Levalbuterol Inhaler [Xopenex Hfa 2 puffs IH DAILY PRN 04/20/16 Inhaler (*)] Loratadine [Claritin 10 mg] 10 mg PO DAILY 04/20/16 Pantoprazole Sodium [Protonix 40mg 40 mg PO DAILY 04/20/16 (*)] Carvedilol [Coreg (*)] 3.125 mg PO BIDMEAL #60 tab 04/23/16 Furosemide [Lasix 20 MG (*)] 20 mg PO BID #60 tab 04/23/16 oxyCODONE HCL [Roxicodone] 2.5 mg PO Q4 PRN #30 tablet 04/23/16 Medical Decision Making - Diagnostics Imaging Results: Imaging Impressions Hip X-Ray 10/13/16 17:58 Impression: 1. Postoperative changes of total right hip arthroplasty with no acute fracture identified. 2. See above report for additional findings. Departure - Departure Disposition: Home, Routine, Self-Care Clinical Impression: Fall Qualifiers: Encounter type: initial encounter Qualified Code(s): W19.XXXA - Unspecified fall, initial encounter Hip pain Qualifiers: Laterality: right Qualified Code(s): M25.551 - Pain in right hip Condition: Good Instructions: Fall Prevention for Older Adults (ED), Arthralgia (ED), Hip Pain (ED) Referrals: Patient,NotPresent [Unknown] - As per Instructions
[2016-10-13 21:14] VITALS: BP 112/66; RESP 16; TEMP 98.2; O2SAT 98
== END 2016-10-13 21:14 | disposition home or self-care (01) ==
LOC: EDUNIT#
DX: S79.911A Unspecified injury of right hip, initial encounter (principal); I25.2 Old myocardial infarction; I50.9 Heart failure, unspecified; I25.10 Atherosclerotic heart disease of native coronary artery without angina pectoris; Z79.82 Long term (current) use of aspirin; Z87.891 Personal history of nicotine dependence; Z95.0 Presence of cardiac pacemaker; W01.0XXA Fall on same level from slipping, tripping and stumbling without subsequent striking against object, initial encounter; Y92.009 Unspecified place in unspecified non-institutional (private) residence as the place of occurrence of the external cause